=== PATIENT | female | born 1970 | race Caucasian/White ===

== ENCOUNTER 2016-07-23 16:22 | Inpatient (IN) | payer OTHER ==
[~2016-07-23] VITALS: Ht 172.7 cm; Wt 68.6 kg
--- NOTE | ~2016-07-23 | H ---
[facility] [place] [address] HISTORY AND PHYSICAL Name: EULALIO MARR Room #: 208-P [facility] IN M.R.#: [id number] Admission: 07/23/16 Attend Phys: Johny Guzman MD Discharge: 07/24/16 Date of : 68 Report #: [id number] THIS REPORT FOR: //name// CC: Johny Calhoun MD DATE OF SERVICE: 07/23/2016 CHIEF COMPLAINT: Chest pain. HISTORY OF PRESENT ILLNESS: This patient is a 46-year-old female. She was transferred from [facility]. She has in the last few days been lately undergoing quite a bit of stress. According to the patient, she had just bought a house and signed all the papers yesterday. She said her anxiety level has been increasing and she is just not feeling good for the last few days. Off and on having some chest discomfort, tightness and the worst episode was today. Denied any relation with activities. No DVT, PE. No cough, congestion, fever; no ____, no focal weakness. She is alert, awake, oriented. Her workup in the ER down there, her lipase was 86. Chemistry and CBC was all negative. D-dimer was negative. Troponin which was reported was 0.04, which is negative actually. Albumin 4.1. EKG was normal. Chest x-ray was normal. D-dimer was negative. She was sent to [place] because they do not have a vinyl cutter available over the weekend. PAST MEDICAL HISTORY: Hypothyroidism, history of Graves' disease and has radiation treatment. Since then, she has radiation-induced hypothyroidism and has been on Synthroid replacement. Hypertension. She had a history of some anxiety. SOCIAL HISTORY: No alcohol, no drugs. She is a smoker for about long-term smoker and she said she started smoking again. ALLERGIES: No known drug allergies. FAMILY HISTORY: Positive for mom of cardiac complications. She had endocarditis and developed complication after that and history of diabetes in the family, but the patient does not have diabetes. PAST SURGICAL HISTORY: She has had a history of times 3, had appendectomy in the past. MEDICATIONS: Med list I have reviewed, and at home, she is on Xanax, aspirin. She is on antihypertensive medication and also Synthroid. She is followed by her manhole builder. [address] [address] HISTORY AND PHYSICAL Name: EULALIO MARR Room #: 208-P [facility] IN M.R.#: [id number] Admission: 07/23/16 Attend Phys: Johny Guzman MD Discharge: 07/24/16 Date of : 68 Report #: [id number] REVIEW OF SYSTEMS: I reviewed all the review of systems, they are described in the HPI ____ especially no TIA, no stroke, no change in mental status. No cough, congestion, fever, no focal weakness. Chest pain as described. This clinically does not look like any pneumonia, PE or pneumothorax. No history of trauma injury and no rash or cellulitis. No loss of weight and loss of appetite. No nausea or vomiting and ____. No easy bleeding, bruising and no diarrhea. Rest of review of systems basically as described in the HPI, otherwise they are reviewed as negative. PHYSICAL EXAMINATION: VITAL SIGNS: Not documented here. She is afebrile and she is on room air. GENERAL: She is awake, alert, oriented, not in distress. HEENT: Pupils equally round and reactive to light. Extraocular muscles intact. No nystagmus. No pallor. NECK: Supple, no JVD. LUNGS: Chest is clear, good breath sounds bilaterally. CARDIOVASCULAR: S1, S2, no murmur. ABDOMEN: Soft, nontender, bowel sounds present. EXTREMITIES: No edema. NEUROLOGIC: She is moving all extremities. No focal weakness. DERMATOLOGIC: Warm, dry skin. PSYCHIATRIC: She is awake, alert, oriented and cooperative with exam and does not look like in any distress right now. She does have underlying history of anxiety, but she looks okay right now, does not look like that anxious or anything like that. LABORATORY DATA: That was all done in the [facility] today is white count of 6.9, H and H and 11.9 and 35.2, platelets 191. INR is 1.0. Troponin 0.04, albumin 4.1, lipase 86. Chest x-ray negative. EKG, no acute finding. D-dimer was negative. ASSESSMENT: 1. Atypical chest pain and so far the workup is negative. 2. Anxiety, chest symptoms could possibly be from the anxiety also. 3. Hypertension. 4. Chronic smoker. 5. Hypothyroidism. PLAN: Keep in ICU. She was started on heparin there and continue. We will have serial cardiac enzymes and Cardiology to see her, already she got aspirin, morphine, nitro p.r.n. for pain. I will try a small dose of Xanax. I also feel that all symptoms could just be from the anxiety. If serial cardiac exam [facility] [address] [place] [address] HISTORY AND PHYSICAL Name: EULALIO MARR Room #: 208-P [facility] IN M.R.#: [id number] Admission: 07/23/16 Attend Phys: Johny Guzman MD Discharge: 07/24/16 Date of : 68 Report #: [id number] negative, she will probably need a stress test. Cardiology will be seeing the patient also, they have already been consulted. <ELECTRONICALLY SIGNED> By: Johny Guzman MD 07/26/16 1023 [id number] 1931 Johny Guzman MD /nt
--- NOTE | ~2016-07-23 | HC ---
[facility] [place] [address] CONSULTATION Name: EULALIO MARR Room #: 208- ADM IN M.R.#: [id number] Admission: 07/23/16 Attend Phys: Johny Guzman MD Discharge: Date of : 68 Report #: [id number] THIS REPORT FOR: //name// CC: Johny Calhoun REASON FOR CONSULTATION: Chest pain. HISTORY OF PRESENT ILLNESS: The patient is a 46-year-old female presenting with chest pain. She reports that she has been under a great deal of stress with school and recent purchase of a new house. She reports that she has been having some pain in her chest that starts out laterally, but then, she notices some pressure that is substernal that is continuous, can last for several hours at a time and is usually associated with her feelings of anxiety and stress. The pain gets worse with worsening stress and relieved when her stress is resolved. She denies exertional chest pain. She denies PND, orthopnea. She denies presyncope or syncope. She has had some palpitations and some irregular heartbeats that sometimes worsen the chest pain. REVIEW OF SYSTEMS: Twelve-point review of systems was performed and was negative. PAST MEDICAL HISTORY: Hypertension, hypothyroidism, anxiety. SOCIAL HISTORY: She does smoke. FAMILY HISTORY: Mom who had endocarditis. ALLERGIES: No known drug allergies. MEDICATIONS: Have been reviewed include atenolol, Xanax and aspirin. PHYSICAL EXAMINATION: VITAL SIGNS: Temperature is 37.1, pulse 62, respiration 16, blood pressure 121/74, sats are 98%. GENERAL: She is in no acute distress. HEENT: Oropharynx is clear. NECK: Supple, with no thyromegaly. CARDIOVASCULAR: Regular rate and rhythm. No murmurs, rubs or gallops. LUNGS: Clear to auscultation bilaterally. ABDOMEN: Soft, nontender, nondistended with no hepatosplenomegaly. EXTREMITIES: No clubbing, cyanosis, edema. NEUROLOGIC: Cranial nerves 2-12 are intact. LABORATORY DATA: White count 5.6, hemoglobin 11.9, platelets 162, sodium 142, potassium 3.8, BUN 12, creatinine 0.8. Troponins negative x 2. Her EKG shows normal sinus rhythm with no acute process. [address] [address] CONSULTATION Name: EULALIO MARR Room #: 208-[facility] IN .R.#: [id number] Admission: 07/23/16 Attend Phys: Johny Guzman MD Discharge: Date of : 68 Report #: [id number] ASSESSMENT: In summary, the patient is a 46-year-old with a chest pain that is worse with anxiety and lasted for several hours without relief. Apparently, it improved with some Ativan. Her troponins are negative. Her EKG is negative as well. As such, I feel she is stable for discharge home. We will set her up with an outpatient stress echo and she will also need a diagnostic cardiac sonographer to further evaluate her palpitations. Thank you for allowing me to participate in her care. By: [id number] Jake Adams MD /nt
[2016-07-23 16:00] VITALS: BP 150/89
[2016-07-23] MEDS ORDERED: TENORMIN25 MG PO (17:06)
[2016-07-23] MEDS ORDERED: LEVOTHYROXINE0.05 MG PO (17:07)
[2016-07-23] MEDS ORDERED: AMOXICILLIN125 M1 PO (17:07)
[2016-07-23 19:53] VITALS: BP 128/58
[2016-07-23 21:15] VITALS: BP 128/58
[2016-07-23 23:40] VITALS: BP 135/84
[2016-07-24 03:07] LABS: HEMATOCRIT 34.9 % (37.0-47.0); HEMOGLOBIN 11.9 gm/dL (12.0-15.0); MCH 31.4 pg (26.0-34.0); MCHC 34.1 g/dL (28.0-37.0); MCV 91.9 fL (80.0-100.0); RBC 3.8 mil/uL (4.20-5.00); RDW 12.8 % (10.5-14.5); WBC 5.6 thou/uL (4.0-11.0)
[2016-07-24 03:26] LABS: ALBUMIN 3.2 g/dL (3.4-5.0); CALCIUM 8.2 mg/dL (8.5-10.1); CREATININE 0.8 mg/dL (0.6-1.3); POTASSIUM 3.8 mmol/L (3.5-5.1); TOTAL BILIRUBIN 0.5 mg/dL (<0.1-1.0); TOTAL PROTEIN 5.7 g/dL (6.4-8.2)
[2016-07-24 03:59] VITALS: BP 112/59
[2016-07-24 07:25] VITALS: BP 121/74
[2016-07-24 11:20] VITALS: BP 135/72
[2016-07-24 12:59] VITALS: BP 135/72
[2016-07-24 13:42] VITALS: BP 135/72
== END 2016-07-24 14:37 | disposition home or self-care (01) | DRG 313 ==
LOC: 2N 16:22
PROVIDERS: Family Medicine
DX: R07.89 Other chest pain (principal); I10 Essential (primary) hypertension; E03.9 Hypothyroidism, unspecified; F41.9 Anxiety disorder, unspecified; E05.00 Thyrotoxicosis with diffuse goiter without thyrotoxic crisis or storm; F17.210 Nicotine dependence, cigarettes, uncomplicated; Z90.49 Acquired absence of other specified parts of digestive tract; Z71.6 Tobacco abuse counseling; Z88.6 Allergy status to analgesic agent; Z82.49 Family history of ischemic heart disease and other diseases of the circulatory system
CPT/HCPCS: 10081